=== PATIENT | female | born 2000 | race Caucasian/White ===

== ENCOUNTER 2022-12-05 23:30 | Emergency (ER) | payer BC, MEDICAID ==
[2022-12-06] MEDS ORDERED: Ondansetron 4 MG Tab.DIS PO ONE (01:43)
== END 2022-12-06 01:59 | disposition home or self-care (01) ==
LOC: JD.ED 23:30
DX: B34.9 Viral infection, unspecified (principal); Z88.5 Allergy status to narcotic agent; Z86.16 Personal history of COVID-19
CPT/HCPCS: 36415; 81001; 84703; 85025; 99283; A9270

== ENCOUNTER 2023-01-30 00:40 | Emergency (ER) | payer BC, MEDICAID ==
[2023-01-30] MEDS ORDERED: Clindamycin HCl 150 MG Cap PO ONE (01:12)
== END 2023-01-30 01:31 | disposition home or self-care (01) ==
LOC: JD.ED 00:40
DX: S61.451A Open bite of right hand, initial encounter (principal); Z88.0 Allergy status to penicillin; Z88.5 Allergy status to narcotic agent; Z86.16 Personal history of COVID-19; W54.0XXA Bitten by dog, initial encounter
CPT/HCPCS: 99283; A9270

== ENCOUNTER 2025-06-11 15:25 | Emergency (ER) | payer OTHER, MEDICAID ==
[2025-06-11 16:10] LABS: BASOPHILS ABSOLUTE AUTO 0.1 K/mm3 (0.0-0.2); BASOPHILS PERCENT AUTO 0.8 % (0.0-1.0); EOSINOPHILS ABSOLUTE AUTO 0.3 K/mm3 (0.0-0.4); EOSINOPHILS PERCENT AUTO 3.2 % (0.0-6.0); IMMATURE GRAN ABSOLUTE AUTO 0.03 K/mm3 (0.00-0.05); IMMATURE GRAN PERCENT AUTO 0.4 % (0.0-0.4); LYMPHOCYTES ABSOLUTE AUTO 2.0 K/mm3 (1.0-4.8); LYMPHOCYTES PERCENT AUTO 25.3 % (24.0-44.0); MEAN PLATELET VOLUME 11.2 fl (9.4-12.3); MONOCYTES ABSOLUTE AUTO 0.5 K/mm3 (0.0-0.8); MONOCYTES PERCENT AUTO 6.5 % (0.0-8.0); NEUTROPHILS ABSOLUTE AUTO 5.0 K/mm3 (1.8-7.7); NEUTROPHILS PERCENT AUTO 63.8 % (41.0-71.0); NRBC ABSOLUTE 0.00 (0.00-0.02); NRBC PERCENT 0.0 % (0.0-0.2); PLATELET COUNT,PLT 283 K/mm3 (150-400); RED BLOOD CELL COUNT 6.10 M/mm3 (4.10-5.30); WHITE BLOOD CELL COUNT,WBC 7.82 K/mm3 (3.9-11.3)
[2025-06-11] MEDS: Ondansetron 4 MG/2 ML SDV IV STA (16:19)
[2025-06-11] MEDS: Ketorolac 60 MG/2 ML SDV IVPUSH STA (16:19)
[2025-06-11 16:33] LABS: A/G RATIO 1.0 (1-2); ALANINE AMINOTRANSFERASE,ALT 22.0 U/L (14-59); ASPARTATE AMNIOTRANSFERASE,AST 20.0 U/L (15-37); BILIRUBIN TOTAL 1.0 mg/dL (0.2-1.0); BLOOD UREA NITROGEN,BUN 10.0 mg/dL (7-18); CARBON DIOXIDE,CO2 21.0 mEq/L (21-32); CHLORIDE,CL 102.0 mEq/L (98-107); CREATININE 0.9 mg/dL (0.55-1.02); EST CRCL DRUG DOSING (CG) 84.67 mL/min; ESTIMATED GFR 93.0 mL/min (>60); GLUCOSE RANDOM 90.0 mg/dL (70-99); POTASSIUM,K 3.8 mEq/L (3.5-5.1); PROTEIN TOTAL,TP 7.5 g/dl (6.4-8.2); SODIUM,NA 138.0 mEq/L (136-145)
== END 2025-06-11 18:00 | disposition home or self-care (01) ==
LOC: JD.ED 15:25
DX: E86.9 Volume depletion, unspecified (principal); G89.18 Other acute postprocedural pain; Z88.0 Allergy status to penicillin; Z79.899 Other long term (current) drug therapy; Z79.84 Long term (current) use of oral hypoglycemic drugs; Z86.16 Personal history of COVID-19
CPT/HCPCS: 36415; 80053; 83690; 83735; 84703; 85025; 96361; 96374; 96375; 99284; 99284-25; J1171; J1885; J2405; J7030